=== PATIENT | female | born 1955 | race Caucasian/White ===

== ENCOUNTER → 2020-09-28 | Outpatient (CLI) | payer MEDICARE ==
[2016-02-09 17:22] VITALS: BP 132/98
--- NOTE | 2020-09-28 16:17 | RAD ---
Examination: Left digital diagnostic mammogram. INDICATION: 65-year-old woman recalled from screening for developing calcifications at the left lung o'clock position anterior third. COMPARISON: 03/29/2016, 09/22/2020 screening mammograms. TECHNIQUE: Magnification views of the left breast in the CC and MLO projections were obtained in eugenio tion to full field left ML view. FINDINGS: Scattered fibroglandular densities. The loosely clustered calcifications vary in size, shape and density with at least 3 clusters of calc ifications present in the anterior superior slightly lateral left breast. These are suspicious. Biops y is recommended. IMPRESSION: Suspicious calcifications in the anterior upper outer left breast. Stereotactic left breast biopsy is recommended. BI-RADS Category 4 Findings suspicious for malignancy Patient notified by the technologist on my behalf and at my request the same day as the procedure. Telephone report also called to Dr. Racquel Brennan's office and discussed with Katelynn who took the report on her behalf at 4:12 PM on 09/28/2020 Electronically signed by: Chris Bean MD (09/28/2020 4:15 PM) [id number]
== END ==
LOC: MAMMO 12:54
PROVIDERS: ATTEND Family Medicine
DX: R92.1 Mammographic calcification found on diagnostic imaging of breast (principal)
CPT/HCPCS: 77065

== ENCOUNTER → 2021-11-02 | Outpatient (CLI) | payer MEDICARE ==
[2016-02-09 17:22] VITALS: BP 132/98
--- NOTE | 2021-11-02 10:34 | RAD ---
EXAMINATION: MG BILAT SCREEN+[facility]INA CLINICAL HISTORY: Screening. History of benign left breast biopsy. TECHNIQUE: Digital craniocaudal and mediolateral oblique views of the bilateral breasts obtained with 3-D tomosynthesis. COMPARISON: 09/28/2020, 09/22/2020, 12/31/2014 BREAST COMPOSITION: There are scattered areas of fibroglandular density. FINDINGS: No evidence of suspicious mass, calcifications, or areas of architectural distortion. Biopsy marker c lip left upper outer quadrant. IMPRESSION: No mammographic evidence of malignancy. BI-RADS ASSESSMENT: Category 2: Benign RECOMMENDATION: Return for routine bilateral screening mammogram in one year. Patient information is entered into the reminder system with a target due date for the next screening mammogram. "Our facility is accredited by the [employer] Mamm[employer]." Electronically signed by: Galdino Landry DO (11/02/2021 10:32 AM) [id number]
--- NOTE | 2021-11-02 14:11 | RAD ---
Bone Densitometry History: Reason: SCREENING FOR OSTEOPOROSIS / Spl. Instructions: / History: Findings: Bone Densitometry was performed with dual photon absorption of the lumbar spine and proximal femurs. Lumbar Spine: Bone density is 0.906 g/cm2 for L1-L4. T-score is -2.3. Z-score is -1.0. This has decreased by 0.7% f rom baseline. Right proximal femur: Bone density is 0.854 g/cm2. T-score is -0.8. Z-score is 0.2., This has decreased by 5.5% from basel ine. IMPRESSION: Osteopenia in the lumbar spine. Normal bone mineral density in the right proximal femur. Bone marrow density has World Health Organization definition of osteoporosis and osteopenia for women: normal equal s T score at or above -1.0 standard deviations; osteopenia equals T score between -1.0 and -2.5 stand gris deviations; osteoporosis equals T score at or below -2.5 standard deviations. Electronically signed by: Janice Clements MD (11/02/2021 2:09 PM) [id number]
== END ==
LOC: MAMMO 09:29
PROVIDERS: ATTEND Family Medicine
DX: Z12.31 Encounter for screening mammogram for malignant neoplasm of breast (principal); M85.88 Other specified disorders of bone density and structure, other site
CPT/HCPCS: 77063; 77067; 77080